=== PATIENT | female | born 1995 | race Caucasian/White ===

== ENCOUNTER 2019-03-14 00:38 | Emergency (ER) | payer SELFPAY, OTHER ==
[2019-03-14] MEDS: ACETAMINOPHEN 500 MG TAB PO (02:51)
[2019-03-14] MEDS: FAMOTIDINE 20 MG TAB PO (02:52)
[2019-03-14 03:00] LABS: ADD MAN DIFF? NO
[2019-03-14 03:01] LABS: BASOPHILS % 0.3 % (0.0-2.0); EOSINOPHILS # 0.2 10^3/ul (0.0-0.5); EOSINOPHILS % 1.3 % (0.0-7.0); HEMATOCRIT 43.3 % (37.0-47.0); HEMOGLOBIN 13.8 g/dl (12.0-16.0); LYMPHOCYTES # 2.3 10^3/ul (0.8-2.9); LYMPHOCYTES % 17.8 % (15.0-51.0); MEAN CORPUSCULAR HEMOGLOBIN 27.5 pg (29.0-33.0); MEAN CORPUSCULAR HGB CONC 31.9 g/dl (32.0-37.0); MEAN CORPUSCULAR VOLUME 86.4 fl (82.0-101.0); MEAN PLATELET VOLUME 9.8 fl (7.4-10.4); MONOCYTE # 0.9 10^3/ul (0.3-0.9); MONOCYTES % 7.2 % (0.0-11.0); NEUTROPHIL # 9.2 10^3/ul (1.6-7.5); NEUTROPHILS % 72.8 % (39.0-77.0); PLATELET COUNT 279 10^3/UL (140-415); RED BLOOD COUNT 5.01 10^6/ul (4.20-5.40); RED CELL DISTRIBUTION WIDTH 14.9 % (11.5-14.5)
[2019-03-14 03:01] LABS: WHITE BLOOD COUNT 12.7 10^3/ul (4.8-10.8)
[2019-03-14 04:53] LABS: URINE BLOOD (Dip) POC Trace-intact (NEGATIVE); URINE GLUCOSE (Dip) POC Negative (NEGATIVE); URINE KETONES (Dip) POC Negative (NEGATIVE); URINE LEUKOCYTE EST (Dip) POC 1+ (NEGATIVE); URINE NITRITE (Dip) POC Negative (NEGATIVE); URINE TOTAL PROTEIN POC 1+ (NEGATIVE)
[2019-03-14] MEDS: HYDROCODONE/APAP (5/325) TAB PO (05:00)
[2019-03-14] MEDS: KETOROLAC 30 MG INJ IM (05:05)
== END 2019-03-14 05:20 | disposition home or self-care (01) ==
LOC: FTE 00:38
DX: N20.0 Calculus of kidney (principal)
CPT/HCPCS: 36415; 76705; 81003; 81025; 84703; 85025; 96372; 99285-25